=== PATIENT | female | born 1990 | race Caucasian/White ===

== ENCOUNTER 2017-11-10 00:45 | Emergency (ER) | payer SELFPAY ==
[~2017-11-10] VITALS: Ht 162.6 cm; Wt 54.4 kg
--- NOTE | 2017-11-10 00:45 | NUR ---
PT LAYLA ROBERTSS. TAKEN TO BED 4
[2017-11-10 00:47] VITALS: BP 117/80
--- NOTE | 2017-11-10 00:47 | NUR ---
PATIENT IS A 27 Y/O FEMALE BIB BLS WHO PRESENTS TO THE ED C/O ETOH. PT STATES THAT SHE WAS DRINKING AND 'COULDN'T FEEL HER BODY.' PT DENIES PAIN AT THIS TIME. PT DENIES CP, SOB, N/V/D. PT AAOX4, RR EVEN/UNLABORED. PT REPOSITIONED FOR COMFORT, BED IN LOWEST POSITION. ER MD DR. JOHN NOTIFIED. WILL CONTINUE TO MONITOR. Addendum: 11/10/17 at 0125 by MEDDCV PATIENT IS A 27 Y/O FEMALE BIB BLS WHO PRESENTS TO THE ED C/O ETOH. PT STATES THAT SHE WAS DRINKING AND 'COULDN'T FEEL HER BODY.' PT DENIES PAIN AT THIS TIME. PT DENIES CP, SOB, REPORTS VOMITING DENIES NAUSEA/DIARRHEA. PT AAOX4, RR EVEN/UNLABORED. PT REPOSITIONED FOR COMFORT, BED IN LOWEST POSITION. ER MD DR. JOHN NOTIFIED. WILL CONTINUE TO MONITOR.
--- NOTE | 2017-11-10 01:22 | NUR ---
Dr. Ramos evaluating patient.
[2017-11-10 02:06] LABS: BASOPHILS # (AUTO) 0.3 K/uL (0.00-0.22); BASOPHILS % (AUTO) 3.5 % (0.0-2.0); EOSINOPHILS # (AUTO) 0.1 K/uL (0-0.4); HEMATOCRIT 46.2 % (36-48); HEMOGLOBIN 15.4 g/dL (12.0-16.0); LYMPHOCYTES # (AUTO) 1.9 K/uL (2.5-16.5); LYMPHOCYTES % (AUTO) 24.8 % (20.5-51.1); MEAN CORPUSCULAR HEMOGLOBIN 31 pg (27-31); MEAN CORPUSCULAR HGB CONC 33 g/dL (33-37); MEAN CORPUSCULAR VOLUME 91.3 fL (80-94); MONOCYTES # (AUTO) 0.4 K/uL (0.8-1.0); MONOCYTES % (AUTO) 5.2 % (1.7-9.3); NEUTROPHILS % (AUTO) 65.5 % (42.2-75.2); PLATELET COUNT (AUTO) 212 K/uL (140-450); RED BLOOD CELL COUNT(AUTO) 5.05 MIL/uL (4.20-5.40); WHITE BLOOD COUNT (AUTO) 7.7 K/uL (4.8-10.8)
--- NOTE | 2017-11-10 03:00 | NUR ---
PATIENT RESTING AT THIS TIME. NO SIGNS OF DISTRESS. FAMILY AT BEDSIDE.
[2017-11-10 03:06] LABS: ANION GAP 14.2 (8-16); CARBON DIOXIDE 25.5 mmol/L (21-32); CHLORIDE 105 mmol/L (98-107); GLUCOSE 105 mg/dL (74-106); POTASSIUM 3.7 mmol/L (3.5-5.1); SODIUM SERUM 141 mmol/L (136-145)
[2017-11-10 04:23] VITALS: BP 135/81
--- NOTE | 2017-11-10 04:23 | NUR ---
Patient discharged with v/s stable. Written and verbal after care instructions given and explained. Patient verbalized understanding. Ambulatory with steady gait. All questions addressed prior to discharge. Advised to follow up with PMD.
== END 2017-11-10 04:23 | disposition home or self-care (01) ==
LOC: MED 00:45
DX: F10.129 Alcohol abuse with intoxication, unspecified (principal); R53.1 Weakness; F17.210 Nicotine dependence, cigarettes, uncomplicated; Z88.8 Allergy status to other drugs, medicaments and biological substances
CPT/HCPCS: 36415; 80048; 81002; 81025; 85025; 93005; 99285